=== PATIENT | male | born 1975 | race African-American/Black ===

== ENCOUNTER 2019-04-25 17:20 | Emergency (ER) | payer OTHER ==
[2019-04-25 17:37] VITALS: BP 127/82; PULSE 85; RESP 18; TEMP 98.8
--- NOTE | 2019-04-25 18:06 | ED ---
General Adult HPI - General Chief complaint: Skin/Abscess/Foreign Body Stated complaint: Dental abscess Time Seen by Provider: 04/25/19 17:47 Source: patient, RN notes reviewed, old records reviewed Mode of arrival: ambulatory Limitations: no limitations - History of Present Illness Initial comments: 44 -year-old male with no significant past medical history presents for evaluation of left-sided facial swelling. 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 He has a large area of pain and swelling and drainage on the left face. No fever chills. Is a nondiabetic. He has no medical conditions and is a nonsmoker. - Related Data Previous Rx's Medication Instructions Recorded Cephalexin [Keflex] 500 mg PO QID #40 cap 04/25/19 Sulfamethox-Tmp 800-160Mg [Bactrim 1 tab PO Q12HR #28 tab 04/25/19 DS 800-160 mg] Allergies Allergy/AdvReac Type Severity Reaction Status Date / Time No Known Allergies Allergy Verified 04/25/19 17:37 Review of Systems ROS Statement: Those systems with pertinent positive or pertinent negative responses have been documented in the HPI. ROS Other: All systems not noted in ROS Statement are negative. Past Medical History Past Medical History: No Reported History History of Any Multi-Drug Resistant Organisms: None Reported Past Surgical History: No Surgical Hx Reported Past Psychological History: No Psychological Hx Reported Smoking Status: Never smoker Past Alcohol Use History: Occasional Past Drug Use History: None Reported General Exam Limitations: no limitations General appearance: alert, in no apparent distress Head exam: Present: atraumatic, normocephalic Eye exam: Present: normal appearance, PERRL ENT exam: Present: normal exam Respiratory exam: Present: normal lung sounds bilaterally. Absent: respiratory distress Cardiovascular Exam: Present: regular rate, normal rhythm GI/Abdominal exam: Present: soft. Absent: distended, tenderness Skin exam: Present: other (Left cheek, 3 cm circular area of induration with central fluctuance approximately 3-5 mm. There is minimal purulent drainage. Multiple areas of folliculitis throughout the period area.) Course Vital Signs 04/25/19 17:35 Temperature 98.8 F Pulse Rate 85 Respiratory 18 Rate Blood Pressure 127/82 O2 Sat by Pulse 96 Oximetry Medical Decision Making - Medical Decision Making 44-year-old male with folliculitis within his face and beer. He has one large area of induration on the left cheek approximately 3; round with very minimal central fluctuance which is draining. He has no medical issues. He started on Keflex and Bactrim. He will apply warm compresses. He is given dermatology follow-up. He will wash with gentle cleansers. Disposition Clinical Impression: Folliculitis barbae, Cellulitis Disposition: HOME SELF-CARE Condition: Good Instructions (If sedation given, give patient instructions): Abscess (ED), Folliculitis (ED), Cellulitis (ED) Prescriptions: Sulfamethox-Tmp 800-160Mg [Bactrim DS 800-160 mg] 1 tab PO Q12HR #28 tab Cephalexin [Keflex] 500 mg PO QID #40 cap Is patient prescribed a controlled substance at d/c from ED?: No Referrals: None,Stated [Primary Care Provider] - 1-2 days Brinda Deluna MD [STAFF PHYSICIAN] - 1-2 days Time of Disposition: 18:05
== END 2019-04-25 18:33 | disposition home or self-care (01) ==
LOC: EC 17:20
DX: L73.8 Other specified follicular disorders (principal); L03.211 Cellulitis of face
CPT/HCPCS: 99283

== ENCOUNTER 2019-06-08 07:00 | Emergency (ER) | payer OTHER ==
[2019-06-08] MEDS ORDERED: ACETAMINOPHEN TAB 500 MG TAB PO STA (07:39)
[2019-06-08] MEDS ORDERED: IBUPROFEN 600 MG TAB PO STA (07:39)
--- NOTE | 2019-06-08 07:49 | ED ---
General Adult HPI - General Chief complaint: Fever Stated complaint: Hiccups Time Seen by Provider: 06/08/19 07:10 Source: patient, RN notes reviewed, old records reviewed Mode of arrival: ambulatory - History of Present Illness Initial comments: This is a 44-year-old male who presents emergency Department complaining of having a fever for the last 3 days per patient also states he has a cough with a little bit of productive sputum. Patient states he did not get a flu shot. Patient denies any throat pain or chest pain. Patient denies any palpitations. Patient denies any difficulty breathing or shortness of breath. Patient denies any nausea vomiting diarrhea. Patient denies any abdominal pain. Patient denies any rashes. Patient denies any ear pain. Patient denies any headache patient denies numbness weakness. Patient does state that he has had hiccups on and off for many months but he has not followed up with anybody. Patient states he had them this morning but they have since gone away. - Related Data Home Medications Medication Instructions Recorded Confirmed Esomeprazole Magnesium [NexIUM 20 mg PO HS PRN 06/08/19 06/08/19 24Hr] Previous Rx's Medication Instructions Recorded Oseltamivir [Tamiflu] 75 mg PO Q12HR #10 cap 06/08/19 Allergies Allergy/AdvReac Type Severity Reaction Status Date / Time No Known Allergies Allergy Verified 06/08/19 07:37 Review of Systems ROS Statement: Those systems with pertinent positive or pertinent negative responses have been documented in the HPI. ROS Other: All systems not noted in ROS Statement are negative. Past Medical History Past Medical History: No Reported History History of Any Multi-Drug Resistant Organisms: MRSA Date of last positivie culture/infection: 2019 MDRO Source:: face/neck Past Surgical History: No Surgical Hx Reported Past Psychological History: No Psychological Hx Reported Smoking Status: Never smoker Past Alcohol Use History: Occasional Past Drug Use History: None Reported General Exam - General Exam Comments Initial Comments: GENERAL: Patient is well-developed and well-nourished. Patient is nontoxic and well- hydrated and is in mild distress. ENT: Neck is soft and supple. No significant lymphadenopathy is noted. Oropharynx is clear. Moist mucous membranes. Neck has full range of motion without eliciting any pain. EYES: The sclera were anicteric and conjunctiva were pink and moist. Extraocular movements were intact and pupils were equal round and reactive to light. Eyelids were unremarkable. PULMONARY: Unlabored respirations. Good breath sounds bilaterally. No audible rales rhonchi or wheezing was noted. CARDIOVASCULAR: There is a regular rate and rhythm without any murmurs gallops or rubs. ABDOMEN: Soft and nontender with normal bowel sounds. SKIN: Skin is clear with no lesions or rashes and otherwise unremarkable. NEUROLOGIC: Patient is alert and oriented x3. Cranial nerves II through XII are grossly intact. Motor and sensory are also intact. Normal speech, volume and content. Symmetrical smile. MUSCULOSKELETAL: Normal extremities with adequate strength and full range of motion. No lower extremity swelling or edema. No calf tenderness. LYMPHATICS: No significant lymphadenopathy is noted PSYCHIATRIC: Normal psychiatric evaluation. Course Vital Signs 06/08/19 06/08/19 06/08/19 07:09 07:24 08:25 Temperature 101.8 F H 100.4 F H Pulse Rate 110 H Respiratory 18 18 Rate Blood Pressure 131/86 O2 Sat by Pulse 93 L Oximetry Medical Decision Making - Medical Decision Making Chest x-ray shows no acute abnormality. - Lab Data Lab Results 06/08/19 Range/Units 07:41 Influenza Type A RNA Detected H (Not Detectd) Influenza Type B (PCR) Not Detected (Not Detectd) Disposition Clinical Impression: Influenza A Disposition: HOME SELF-CARE Condition: Good Instructions (If sedation given, give patient instructions): Fever in Adults (ED), Influenza (ED) Prescriptions: Oseltamivir [Tamiflu] 75 mg PO Q12HR #10 cap Is patient prescribed a controlled substance at d/c from ED?: No Referrals: None,Stated [Primary Care Provider] - 1-2 days Time of Disposition: 08:35
--- NOTE | 2019-06-08 08:27 | XR ---
EXAMINATION TYPE: XR chest 2V DATE OF EXAM: 06/08/2019 COMPARISON: NONE HISTORY: Shortness of breath, cough, congestion, and fever for 2 days. TECHNIQUE: Frontal and lateral views of the chest are obtained. FINDINGS: There is no focal air space opacity, pleural effusion, or pneumothorax seen. The cardiac silhouette size is within normal limits. The osseous structures are intact. IMPRESSION: No suspicious acute infiltrate.
[2019-06-08 09:12] VITALS: BP 125/74; PULSE 97; RESP 20; TEMP 100.2
== END 2019-06-08 09:12 | disposition home or self-care (01) ==
LOC: EC 07:00
DX: J10.1 Influenza due to other identified influenza virus with other respiratory manifestations (principal)
CPT/HCPCS: 71046; 87502; 99284

== ENCOUNTER → 2022-06-02 | Outpatient (CLI) | payer OTHER ==
--- NOTE | 2022-06-02 15:52 | P.SLEEP ---
History of Present Illness DATE: 06/02/2022 CONSULTATION/NEW PATIENT EVALUATION HISTORY OF PRESENT ILLNESS/SLEEP-WAKE EVALUATION: 47-year-old gentleman had been evaluated in the sleep center for possible obstructive sleep apnea hypopnea syndrome. SLEEP SCHEDULE: Usually sleep schedule on working days from 10 PM to 4 AM, on weekend from 10 PM to 7 AM. FALLING ASLEEP: No problems with falling asleep, although patient has TV set and bedroom. DURING SLEEP: Patient sleeps in different positions. According to his he snores and has episodes of changing breathing during the sleep. Positive history of sweating during the sleep No history of hypnogogical hallucinations, sleep paralysis, or cataplexy. DURING THE DAY/WAKE STATE: In the morning patient wake up tired. [place] sleepiness scale is borderline 9. Usually patient doesn't take naps. PAST MEDICAL HISTORY: Diabetes mellitus. PAST SURGICAL HISTORY: Was ectomy. MEDICATIONS: Metformin, glipizide. SOCIAL HISTORY: Positive history of smoking for 15 years several cigarettes a day, quit 10 years ago, alcohol consumption occasional. FAMILY HISTORY: Negative. REVIEW OF SYSTEMS: Snoring, witnessed sleep apneas. No fevers. No double vision. No recent chest pain. No shortness of breath. No abdominal pain. No bleeding episodes. No blood in urine. No seizure episodes. PHYSICAL EXAMINATION: GENERAL: A pleasant patient without any distress. VITAL SIGNS: BP 120/74, HR 86, RR 16, weight 246 pounds, height 5 foot 11-1/4 inches, body mass index 34.3. HEENT: PERRLA, EOMI. Evaluation of oropharynx showed tongue protrudes midline, low position of soft palate Mallampati 4. NECK: Supple. No JVD. Thyroid is not palpable. 19 inches in circumference. LUNGS: Clear to percussion and to auscultation. Good air exchange. No wheezing or rhonchi. HEART: S1, S2 regular. No murmurs, gallops or rubs. ABDOMEN: Soft and nontender. Bowel sounds are present. No organomegaly appreciated. EXTREMITIES: No clubbing or cyanosis. MULTIPLE SLIDE OPERATOR: Awake, alert, and oriented x3. Cranial nerves 2 to 7 intact. There is no fasciculation or atrophy noted. No focal deficits observed. ASSESSMENT: 1. Snoring, witnessed sleep apneas, extremely low position of soft palate, wide neck 19 inches in circumference. Obstructive sleep apnea hypopnea syndrome. 2. Obesity body mass index 34.3. 3. Diabetes mellitus. 4. Status post was ectomy. PLAN: 1. Polysomnography for evaluation of patient's breathing during sleep. 2. CPAP/BiPAP titration if sleep study confirms obstructive sleep apnea- hypopnea syndrome. 3. Preferable position during sleep on the side. 4. No driving if patient feels any sleepiness. Patient is aware of civil and criminal liability for unsafe driving. 5. Sleep hygiene with regular sleep time for at least 7.5-8 hours. 6. Watching and losing weight. Thank you very much for referring this patient for consultation. Sincerely, Harshil Aguirre MD, PhD, FAASM. Diplomat of [employer], Sleep Medicine Board by [employer] [employer] [facility] Sur[facility] [place] Past Medical History Past Medical History: No Reported History History of Any Multi-Drug Resistant Organisms: MRSA Date of last positivie culture/infection: 2019 MDRO Source:: face/neck Past Surgical History: No Surgical Hx Reported Past Psychological History: No Psychological Hx Reported Past Alcohol Use History: Occasional Past Drug Use History: None Reported Medications and Allergies Home Medications Medication Instructions Recorded Confirmed Type Esomeprazole Magnesium [NexIUM 20 mg PO HS PRN 06/08/19 06/08/19 History 24Hr] Oseltamivir [Tamiflu] 75 mg PO Q12HR #10 cap 06/08/19 Rx Allergies Allergy/AdvReac Type Severity Reaction Status Date / Time No Known Allergies Allergy Verified 06/08/19 07:37 Sleep Note - Sleep Note Sleep Note: Temperature: Pulse Rate: Respiratory Rate: Blood Pressure: SpO2: Height: Weight: BMI: Neck Circumference:
== END ==
LOC: SLEEP 14:51
PROVIDERS: ATTEND Internal Medicine
DX: G47.33 Obstructive sleep apnea (adult) (pediatric) (principal); E66.9 Obesity, unspecified; E11.9 Type 2 diabetes mellitus without complications; Z98.52 Vasectomy status; Z68.34 Body mass index [BMI] 34.0-34.9, adult; Z79.84 Long term (current) use of oral hypoglycemic drugs
CPT/HCPCS: 99211